=== PATIENT | male | born 1995 | race American Indian/Alaskan Native ===

== ENCOUNTER 2018-04-20 19:59 | Emergency (ER) | payer SELFPAY ==
[2018-04-20 21:25] VITALS: BP 128/82
[2018-04-20] MEDS ORDERED: NACL 0.9% 500 ML 500 ML IV ONE (21:45)
[2018-04-20 21:53] LABS: Bilirubin,Urine NEG (Negative); Blood,Urine LG (Negative); Color,Urine Yellow (Yellow); Mucus,Urine FEW /HPF; Protein,Urine <15 mg/dL mg/dL (Negative); Urobilinogen,Urine < 2.0 mg/dL (<2.0)
--- NOTE | 2018-04-20 21:54 | Emergency Department Report ---
ED Male HPI - General Chief complaint: Urogenital-Male Stated complaint: PENIS BLEEDING Time Seen by Provider: 04/20/18 20:29 Source: patient Mode of arrival: Ambulatory Limitations: No Limitations - History of Present Illness Initial comments: 23-year-old male with no subcutaneous past medical or surgical history presents to the hospital. No penile pain and bleeding that started during intercourse. Patient was having intercourse and had immediate sharp pain. He did have blood coming from his urethra. Currently pain is mild and rated 2/10 in intensity. Patient states that bleeding has decreased and minimal at this time. He has not urinated since injury occurred. He denies placing any objects in his penis and his girlfriend does not have any vaginal piercings. - Related Data Allergies Allergy/AdvReac Type Severity Reaction Status Date / Time No Known Allergies Allergy Verified 04/20/18 20:05 ED Review of Systems ROS: Stated complaint: PENIS BLEEDING Other details as noted in HPI Comment: All other systems reviewed and negative ED Past Medical Hx - Past Medical History Previous Medical History?: No - Surgical History Past Surgical History?: No - Social History Smoking Status: Never Smoker Substance Use Type: None ED Physical Exam - General Limitations: No Limitations - Other Other exam information: General: No limitations, patient is alert in no acute distress Head exam: Atraumatic, normocephalic Eyes exam: Normal appearance ENT: Moist mucous membrane Neck exam: Normal inspection, full range of motion, no meningismus nontender Respiratory exam: Clear to auscultation bilateral, no wheezes, rales, crackles Cardiovascular: Normal rate and rhythm, normal heart sounds Abdomen: Soft, nondistended, and nontender, with normal bowel sounds, no rebound, or guarding : Circumcised, minimum gross blood, from the meatus. No signs of penile laceration, ecchymosis, swelling, deformity, or tenderness on exam. No testicular pain, swelling, or tenderness on exam. Extremity: Full range of motion normal inspection no deformity Back: Normal Inspection, full range of motion, no tenderness Neurologic: Alert, oriented x3, cranial nerves intact, no motor or sensory deficit Psychiatric: normal affect, normal mood Skin: Warm, dry, intact ED Course Vital Signs 04/20/18 04/20/18 20:01 21:24 Temperature 97.8 F Pulse Rate 95 H 89 Respiratory 16 18 Rate Blood Pressure 146/86 Blood Pressure 128/82 [Left] O2 Sat by Pulse 100 100 Oximetry - Reevaluation(s) Reevaluation #1: 04/20/18 21:49 Shortly after my phone call with urology I was informed that patient was able to urinate and it was yellow in color. Awaiting UA results at this time - Consultations Consultation #1: 04/20/18 At 8:52 PM [facility] was paged. At 9:15 PM there was no return call and therefore a repeat urology was paged at 9:14 PM. At 9:[address] Banda urologist returned call and provided some management advice. Isn't any specific imaging required at this time. The patient is able to urinate he may go home with urology follow-up. If unable to urinate may place catheter and DC home. If It does not pass neurologist may be reconsultation for possible transfer. ED Medical Decision Making - Medical Decision Making UA had a large amount of blood with greater then 185 RBCs. Only 7 WBCs without symptoms of dysuria. Patient be discharged home with urology follow-up since he is able to urinate in the ED. Patient's urine was yellow in color. - Differential Diagnosis urethral injury, penile fracture Critical Care Time: No Critical care attestation.: If time is entered above; I have spent that time in minutes in the direct care of this critically ill patient, excluding procedure time. ED Disposition Clinical Impression: Bleeding from the urethra, Penis injury Disposition: DC-01 TO HOME OR SELFCARE Is pt being admited?: No Does the pt Need Aspirin: No Condition: Stable Instructions: Acute Hematuria (ED) Additional Instructions: It is very important that you follow up with the urologist for further workup and management. I advised no further sexual intercourse until you are cleared by the urologist. Please return to the Er if you're unable to urinate, have worsening pain, or worsening bleeding from your penis. Referrals: [facility] [Provider Group] - 3-5 Days (Primary care clinic) LILLY NEFF MD [Staff Physician] - 3-5 Days (urology ) TARIK LOGAN MD [Primary Care Provider] - 3-5 Days (Primary care doctor) Time of Disposition: 22:42
[2018-04-20 21:58] LABS: RBC,Urine < 1.0 /HPF (0.0-6.0)
== END 2018-04-20 23:04 | disposition home or self-care (01) ==
LOC: ED 19:59
DX: N36.8 Other specified disorders of urethra (principal)
CPT/HCPCS: 81001; 99283